=== PATIENT | female | born 1945 | race Caucasian/White ===

== ENCOUNTER 2016-10-05 08:31 | Outpatient (CLI) | payer MEDICARE ==
[~2016-10-05] VITALS: Ht 162.6 cm; Wt 122.7 kg
--- NOTE | ~2016-10-05 | HEMODYNAMI ---
PATIENT:GIULIANO SHAH MEDICAL RECORD: [id number] : 49 LOCATION:[facility] ADMISSION DATE: 10/05/16 Generatedon:10/05/201611:35 Patient name: GIULIANO SHAH Patient #: [id number] SSN: : 1945 Date of study: 10/05/2016 Page: Of Hemodynamic Procedure Report Patient Data Patient Demographics Procedure consent was obtained First Name: GIULIANO Gender: Female Last Name: ALYSSA : 1945 Patient #: [id number] Age: 71 year(s) Race: Unknown Additional ID: [id number] Contact details Address: [address] [place] [address] STREET State: [place]: [facility] [place] code: [address] Past Medical History Allergies Allergen Reaction Date Comments Reported Other allergy 10/05/2016 erthromycin, methorexate, sotalol Admission Admission Data Admission Date: 10/05/2016 Admission Time: 8:31 Admit Source: Other Lab Results Lab Result Date: 10/05/2016 Lab Result Time: 0:00 Biochemistry Name Units Result Min Max BUN mg/dl 24 --(----)-* 7 18 Creatinine mg/dl 1.1 --(--*-)-- 0.6 1.3 CBC Name Units Result Min Max Hemoglobin g/dl 12 *-(----)-- 13.5 17.5 Procedure Procedure Types Cath Procedure Diagnostic Procedure LHC LHC w/Coronaries Procedure Description Procedure Date Procedure Date: 10/05/2016 Procedure Start Time: 11:25 Procedure End Time: 11:33 Procedure Staff Name Function Rafael Hernandez MD Performing Physician Jenn Albert RN Nurse Jaime Mazariegos RT Monitor Anna Eason RT Scrub Juvencio Garcia RT Underground Roof Bolter Procedure Data Cath Procedure Fluoroscopy Diagnostic fluoroscopy Total fluoroscopy Time: 1.8 time: 1.8 min min Diagnostic fluoroscopy Total fluoroscopy dose: 442 dose: 442 mGy mGy Contrast Material Contrast Material Type Amount (ml) Isovue 300 53 Entry Location Entry Primary Successful Side Size Upsize Upsize Entry Closure Succes sful Closure Location (Fr) 1 (Fr) 2 (Fr) Remarks Device Remarks Femoral Right 5 Fr Vascade artery Closure System Diagnostic catheters Device Type Used For End Catheter Placement Cordis 5Fr Pigtail LV Angiography Catheter (MP) Cordis 5Fr JL 4.0 Left Coronary Catheter (MP) Angiography Cordis 5Fr 3DRC Catheter Right Coronary (MP) Angiography Procedure Complications No complications Procedure Medications Medication Administration Route Dosage Oxygen NC 2 l/min Heparin Flush Bag added to field 2 bags (1000units/500ml NS) Lidocaine 2% added to field 20 Benadryl I.V. 50 mg Versed I.V. 1 mg Fentanyl I.V. 50 mcg Versed I.V. 1 mg Fentanyl I.V. 50 mcg Versed I.V. 1 mg Fentanyl I.V. 50 mcg Versed I.V. 1 mg Fentanyl I.V. 50 mcg Hemodynamics Rest HGB: 12 (g/dl) Heart Rate: 81 (bpm) Snapshots Pre Cath Intra NCS Post Cath Vital Signs Time Heart Resp SPO2 NIBP (mmHg) Rhythm Pain Sedation Rate (ipm) (%) Status Level (bpm) 11:08:25 82 17 98 204/103(158) NSR 0 (11) 10(A) , No pain 11:12:47 79 26 99 174/73(137) NSR 0 (11) 10(A) , No pain 11:17:08 75 23 97 154/72(127) NSR 0 (11) 10(A) , No pain 11:21:24 80 16 95 155/76(130) NSR 0 (11) 10(A) , No pain 11:25:40 83 19 98 147/70(121) NSR 0 (11) 10(A) , No pain 11:29:58 83 15 97 162/79(110) NSR 0 (11) 10(A) , No pain 11:33:45 83 17 96 164/76(121) NSR 0 (11) 10(A) , No pain Medications Time Medication Route Dose Verified Delivered Reason Notes Effec tiveness by by 11:09:27 Oxygen NC 2 Rafael Jenn Per l/min Mary Albert RN physician 11:09:38 Heparin Flush added 2 Rafael Rafael used for Bag to bags Mary Hernandez MD procedure (1000units/500ml field NS) 11:09:44 Lidocaine 2% added 20ml Rafael Hall used for to vial Mary Hernandez MD procedure field 11:09:51 Benadryl I.V. 50 mg Rafael Jenn Per Mary Albert RN physician 11:24:18 Versed I.V. 1 mg Rafael Jenn for Mary Albert RN sedation 11:24:23 Fentanyl I.V. 50 Raafel Jenn for mcg Mary Albert RN sedation 11:26:33 Versed I.V. 1 mg Rafael Jenn for Mary Albert RN sedation 11:26:36 Fentanyl I.V. 50 Rafael Jenn for mcg Mary Albert RN sedation 11:28:15 Versed I.V. 1 mg Rafael Jenn for Mary Albert RN sedation 11:28:21 Fentanyl I.V. 50 Rafael Jenn for mcg Mary Albert RN sedation 11:29:14 Versed I.V. 1 mg Rafael Jenn for Mary Albert RN sedation 11:29:26 Fentanyl I.V. 50 Rafael Jenn for mcg Mary Albert RN sedation Procedure Log Time Note 10:40:08 Jaime Mazariegos RT(R) sent for patient. Start room use. 10:54:26 Admit Source: Other 10:55:05 Diagnostic Cath status Elective 10:55:16 Time tracking: Regular hours 10:55:20 Plan of Care:Hemodynamics will remain stable., Cardiac rhythm will remain stable., Comfort level will be maintained., Respiratory function will remain adequate., Patient/ family verbilizes understanding of procedure., Procedure tolerated without complication., Recovers from procedure without complications.. 11:06:16 Vital chart was started 11:09:27 Oxygen 2 l/min NC was given by Jenn Albert RN; Per physician; 11:09:38 Heparin Flush Bag (1000units/500ml NS) 2 bags added to field was given by Rafael Hernandez MD; used for procedure; 11:09:44 Lidocaine 2% 20ml vial added to field was given by Rafael Hernandez MD; used for procedure; 11:09:51 Benadryl 50 mg I.V. was given by Jenn Albert RN; Per physician; 11:10:56 Patient received from Outpatients to CCL 1 Alert and oriented. Tansferred to table in Supine position. 11:10:57 Warm blankets applied, and alda hugger turned on for patient comfort. 11:10:57 Correct patient and procedure confirmed by team. 11:10:58 Signed procedure consent form obtained from patient. 11:10:59 ECG and BP/O2 sat monitors applied to patient. 11:11:00 Baseline sample Acquired. 11:11:04 Rhythm: sinus rhythm 11:11:25 Full Disclosure recording started 11:14:46 H&P Date Dictated: 09/16/2017 Within 30 days and on chart., H&P Addendum completed by physician on day of procedure. (MUST COMPLETE FOR ALL OUTPATIENTS). 11:14:47 Pre-procedure instructions explained to patient. 11:14:47 Pre-op teaching completed and patient verbalized understanding. 11:14:49 Family in waiting room. 11:14:51 Patient NPO since Midnight. 11:15:34 Patient allergic to Other allergyerthromycin, methorexate, sotalol 11:15:37 Is the patient allergic to Iodine/contrast media? No. 11:15:54 Is patient on blood thinner?No 11:15:56 Patient diabetic? No. 11:16:09 ----Pre-sedation anethsthesia assessment.---- 11:16:11 Previous problem with sedation/anesthesia? No ? 11:16:13 Snore? Yes 11:16:14 Sleep apnea? No 11:16:18 Deviated septum? No 11:16:21 Opens mouth fully? Yes 11:16:23 Sticks out tongue? Yes 11:16:25 Airway obstruction? No ? 11:16:32 Dentures? Yes out 11:16:35 Pre procedure: right dorsailis pedis pulse 2+ Normal; easily identifiable; not easily obliterated 11:16:37 Patient pain scale 0/10 ?. 11:16:45 IV patent on arrival in left hand with 0.9% NaCl at 10ml/hr. 11:18:21 Lab Result : BUN 24 mg/dl 11:18:21 Lab Result : Creatinine 1.1 mg/dl 11:18:21 Lab Result : Hemoglobin 12 g/dl 11:18:24 Lab results completed and on chart. 11:18:28 Right groin area was prepped with chlora-prep and draped in sterile fashion 11:18:31 Alarms reviewed by R. N. 11:18:32 Sharps counted by scrub and verified by R.N. 11:21:40 Zero performed for pressure channel P1 11::52 --------ALL STOP TIME OUT------ 11::53 Final Timeout: patient, procedure, and site verified with staff and physician. All members of the team are in agreement. 11::54 Right groin site verified by team. 11::56 Physical assessment completed. ASA score P 2 - A patient with mild systemic disease as per Rafael Hernandez MD. 11:23:59 Sedation plan: IV Moderate Sedation Versed, Fentanyl 11:24:18 Versed 1 mg I.V. was given by Jenn Albert RN; for sedation; ::23 Fentanyl 50 mcg I.V. was given by Jenn Albert RN; for sedation; 11:25:24 Use device set Femoral Dx 11:25:25 Acist Syringe opened to sterile field. 11:25:25 Bag Decanter opened to sterile field. 11:25:26 Cardinal Cath Pack opened to sterile field. 11:25:26 Terumo 5Fr [place] Sheath opened to sterile field. 11:25:27 St Rishi 260cm J .035 wire opened to sterile field. 11:25:28 Acist Hand Control opened to sterile field. 11:25:28 Acist Manifold opened to sterile field. 11:25:29 Cordis Infinity 5Fr Multipack catheter opened to sterile field. 11:25:30 Tegaderm 4 x 4 opened to sterile field. 11:25:33 Procedure started. 11:25:41 Local anesthetic to right femoral artery with Lidocaine 2% by Rafael Hernandez MD.INITIAL ACCESS ONLY 11:25:48 A 5 Fr sheath was inserted into the Right Femoral artery 11:26:13 A Cordis 5Fr Pigtail Catheter (MP) was advanced over the wire and used for LV Angiography. 11:26:16 LV angiography performed. 11:26:18 LV gram done using TRINIDAD 11::33 Versed 1 mg I.V. was given by Jenn Albert RN; for sedation; 11::36 Fentanyl 50 mcg I.V. was given by Jenn Albert RN; for sedation; 11::43 EF : 60 % 11::44 Catheter removed. 11::53 A Cordis 5Fr JL 4.0 Catheter (MP) was advanced over the wire and used for Left Coronary Angiography. 11::57 LCA angiography performed. 11::15 Versed 1 mg I.V. was given by Jenn Albert RN; for sedation; 11::21 Fentanyl 50 mcg I.V. was given by Jenn Albert RN; for sedation; 11::00 Catheter removed. 11::05 A Cordis 5Fr 3DRC Catheter (MP) was advanced over the wire and used for Right Coronary Angiography. 11:29:09 RCA angiography performed. 11::14 Versed 1 mg I.V. was given by Jenn Albert RN; for sedation; 11:: Fentanyl 50 mcg I.V. was given by Jenn Albert RN; for sedation; 11:30:12 Catheter removed. 11:30:22 Vascade 5Fr Closure Device opened to sterile field. 11:30:30 Contrast amount:Isovue 300 53ml. 11:30:38 Sheath removed intact; hemostasis achieved with Vascade Closure System to the Right Femoral artery. 11:30:39 Procedure ended.(Physican Out) 11:30:58 Fluoroscopy time 01.80 minutes. 11::03 Fluoroscopy dose: 442 mGy 11::03 Flurop Dose total: 442 11:31:04 Sharps counted by scrub and verified by R.N. 11:31:05 Insertion/operative site no bleeding no hematoma. 11:31:08 Post-op/insertion site Right Femoral artery dressed using a 4 x 4 and Tegaderm. 11:31:11 Post right femoral artery:stable 11:31:12 Post Procedure Pulses reassessed and unchanged 11:31:14 Post procedure: right dorsailis pedis pulse 2+ Normal; easily identifiable; not easily obliterated. 11:31:19 Post procedure rhythm: sinus rhythm 11:31:20 Post procedure instruction explained to patient.Patient verbalizes understanding. 11:31:31 Procedure and supply charges have been captured, reviewed, submitted and are correct. 11:31:39 Procedure Complication : No complications 11:33:17 Vital chart was stopped 11:33:18 See physician's report for complete and final results. 11:33:25 Report given to Post Procedure Room. 11:33:28 Patient transfered to Post Procedure Room with Stretcher. 11:33:30 Procedure ended. 11:33:30 Full Disclosure recording stopped 11:33:35 End room use (Document Last) Device Usage Item Name Manufacture Quantity Catalog Number Hospital Part Current Minimal Lot# / Charge Number Stock Stock Serial# Code Acist Acist 1 [id number] 312286 [id number] 20 Syringe Medical Systems Inc Bag Microtek 1 2002S 184254 98862 379980 5 Decanter Medical Inc. Cardinal Cardinal 1 [id number] 046631 69873 345004 5 Cath Pack [place] Terumo Terumo 1 [id number] 493157 694580 626211 [address] [place] [address] Rishi St Rishi 1 460222 663014 286350 414547 30 260cm J .035 wire Acist Acist 1 07555 735783 967037 177457 5 Hand Medical Control Systems Inc Acist Acist 1 88536 027707 501412 357330 5 Manifold Medical Systems Inc Cordis Cardinal 1 [id number] 537365 16790 388114 30 Infinity Health 5Fr Multipack catheter Tegaderm 3M 1 [id number] 416125 886561 951575 5 4 x 4 Cordis Cardinal 1 [id number] 5 5Fr Health Pigtail Catheter (MP) Cordis Cardinal 1 [id number] 5 5Fr Health 4.0 Catheter (MP) Cordis Cardinal 1 247593 5 5Fr [facility] Health Catheter (MP) Vascade Cardiva 1 [id number] 267656 36101 952435 10 5Fr Medical, Closure Inc. Device Signature Audit [place] Stage Time Signature Unsigned Intra-Procedure 10/05/2016 Jaime Mazariegos 11:35:21 AM RT(R) Signatures Monitor : Jaime Mazariegos RT Signature : Date : Time : [facility] [address] [place] [address]
[~2016-10-05 08:31] MED LIST: ASPIRIN 81 MG E81 MG PO; KLOR-CON M2020 MEQ PO; LANOXIN125 MCG PO; LASIX40 MG; LASIX40 MG PO; NITROGLYCERIN2.5 M1 PO; PLAVIX75 MG PO; PRILOSEC20 MG PO; TOPROL XL100 MG PO
[2016-10-05 09:33] VITALS: Ht 162.6 cm; Wt 122.7 kg
[2016-10-05] MEDS ORDERED: ZOLOFT25 MG PO (09:40)
[2016-10-05 09:41] LABS: BASOPHILS 0.5 % (0.0-2.0); EOSINOPHILS 0 % (0-7); HEMATOCRIT 37.6 % (36.0-48.0); IMMATURE GRANULOCYTES 0.3 % (0-5); LYMPHOCYTES 27.5 % (15-50); MCH 28.1 pg (26.0-34.0); MCHC 31.9 g/dL (31.0-37.0); MCV 88.1 fL (80.0-100.0); MEAN PLATELET VOLUME 10.5 fL (7.4-10.4); MONOCYTES 6.9 % (2-11); NEUTROPHILS 64.8 % (40-80); PLATELET COUNT 185 10x3/uL (130-400); RBC 4.27 10x6/uL (4.00-5.40); WBC 7.7 10x3/uL (4.8-10.8)
[2016-10-05] MEDS ORDERED: VITAMIN E1000 UNI1 PO (09:42)
[2016-10-05] MEDS ORDERED: MAGNESIUM OXID500 MG PO (09:42)
[2016-10-05 10:02] LABS: ANION GAP 11.1 mmol/L (8-16); CALCIUM 9.2 mg/dL (8.5-10.1); CARBON DIOXIDE 29.5 mmol/L (21.0-32.0); CREATININE - SERUM 1.1 mg/dL (0.6-1.3); POTASSIUM - SERUM 4.6 mmol/L (3.5-5.1)
--- NOTE | 2016-10-05 12:11 | NUR ---
1200 LYING FLAT, ROOM AIR W NO DISTRESS. NSR RATE 79 W NO C/O CHST PAIN. PULSES PALP X 4. VITALS ALL WNL. R GROIN 5F VASCADE C/D/I WITH NO HEMATOMA OR BLEEDING. AT BEDSIDE.
--- NOTE | 2016-10-05 12:29 | NUR ---
LYING FLAT WITH NO C/O OF CHEST PAIN VSS 5 FR VASCADE R/GROIN CDI NO BLEEDING NO HEMATOMA NOTED. INSTRUCTED PATIENT TO KEEP HEAD FLAT ON PILLOW WITH RLE STRAIGHT
--- NOTE | 2016-10-05 13:19 | NUR ---
1300 SITTING UP EATING TURKEY SANDWICH WITH ASSIST FROM . WILL MONITOR R GROIN CLOSELY FOR BLEEDING. ALL VITALS WNL.
--- NOTE | 2016-10-05 13:20 | NUR ---
1320 PIV REMOED FROM LEFT HAND WITH BANDAID APPLIED. R GROIN REMAINS C/D/I WITH NO HEMATOMA OR BLEEDING. UP TO BEDSIDE TO DRESS, AMBULATED TO BATHROOM TO VOID.
--- NOTE | 2016-10-05 13:40 | NUR ---
D/C INSTRUCTIONS DISCUSSED WITH PATIENT AND AT BEDSIDE. WHEELED DOWN VIA WHEELCHAIR BY CATH TEAM.
--- NOTE | 2016-10-09 16:40 | OP ---
PATIENT NAME: GIULIANO SHAH MEDICAL RECORD: [id number] :49 LOCATION:D.CAT ADMISSION DATE: SURGEON: RICH WINTER MD DATE OF OPERATION: 10/05/2016 PROCEDURES: 1. Left heart catheterization. 2. Selective coronary angiography. 3. Left ventriculogram. INDICATION: Angina and coronary artery disease, previous PTCA stent. PROCEDURE IN DETAIL: After informed consent was obtained and after a detailed explanation of the risks, benefits, as well as alternative therapies, the patient elected to proceed with angiogram and heart catheterization. The right femoral area was prepped and draped in normal sterile fashion. The right femoral artery was cannulated via modified Seldinger technique with placement of 5-Portuguese sheath. All catheters exchanged through this sheath. FINDINGS: The left ventriculogram was performed in standard 30-degree TRINIDAD view, reveals good cardiac wall motion, ejection fraction 55% to 60%. SELECTIVE CORONARY ANGIOGRAPHY: 1. Left main showed no significant angiographic disease. 2. Left anterior descending has previously placed stent; it is widely patent with no significant restenosis. No disease elsewise throughout the LAD or its branches. 3. The left circumflex shows moderate irregularities, but no flow-limiting stenosis. 4. Right coronary has moderate irregularities, but no flow-limiting stenosis. OVERALL IMPRESSION: Wide patency of the previously placed stent in the left anterior descending. No disease elsewise. Normal ejection fraction. Continue medical management of the coronary artery disease and cardiac risk factors. TRANSINT:[id number] Voice Confirmation ID: [id number] DOCUMENT ID: [id number] RICH WINTER MD at [facility] CC: [id number] DICTATION DATE: 10/05/16 1135 TELEGRAPHIC TYPEWRITER OPERATOR CHIEF: 10/05/16 1144 DEP CLI 10/05/16 [place] [address]
== END 2016-10-05 13:41 | disposition home or self-care (01) ==
LOC: D.CATH 08:31
PROVIDERS: Internal Medicine Interventional Cardiology
DX: I25.119 Atherosclerotic heart disease of native coronary artery with unspecified angina pectoris (principal); Z95.5 Presence of coronary angioplasty implant and graft

== ENCOUNTER → 2017-01-14 12:30 | Outpatient (CLI) | payer MEDICARE ==
[2016-10-05 09:33] VITALS: BMI 46.4
[~2017-01-14 12:30] MED LIST changes: +MAGNESIUM OXID500 MG PO; +VITAMIN E1000 UNI1 PO; +ZOLOFT25 MG PO
== END | disposition home or self-care (01) ==
LOC: D.RT 12:30
DX: J44.9 Chronic obstructive pulmonary disease, unspecified (principal)

== ENCOUNTER → 2017-05-14 11:37 | Outpatient (CLI) | payer MEDICARE ==
[2016-10-05 09:33] VITALS: BMI 46.4
== END | disposition home or self-care (01) ==
LOC: D.RAD 05-10 16:30 → D.CT 05-10 16:30 → D.RAD 05-10 17:00 → D.CT 11:30 → D.RAD 13:00 → D.CT 05-18 11:30
DX: R07.1 Chest pain on breathing (principal); J44.9 Chronic obstructive pulmonary disease, unspecified

== ENCOUNTER 2017-05-25 07:25 | Outpatient (CLI) | payer MEDICARE ==
[~2017-05-25] VITALS: Ht 162.6 cm; Wt 120.0 kg
--- NOTE | ~2017-05-25 | PRO ---
PATIENT:GIULIANO JIMENEZ MEDICAL RECORD: [id number] : 49 LOCATION:D.OPS ADMISSION DATE: 05/25/17 PROCEDURE PERFORMED BY: FARZANA LINTON MD DATE OF PROCEDURE: 05/25/2017 PROCEDURE: Fiberoptic bronchoscopy. INDICATION: Ms. Jimenez is a 72-year-old female who has recent CT scan of the chest, which showed bilateral hazy infiltrate. There was also tree-in-bud type appearance. Fiberoptic bronchoscopy was carried out to inspect the airway as well as to get specimen for culture and sensitivity. MONITORING: EKG, pulse, blood pressure, SpO2 were monitored throughout the procedure. MEDICATIONS: Atropine 0.6 mg IM, morphine 4 mg IM, fentanyl 50 mcg IV, Versed 3 mg IV. PROCEDURE IN DETAIL: After passing the procedure, the fiberoptic bronchoscope was easily passed through the mouth. The epiglottis was normal. The vocal cords were normal, moving equally on phonation. The main trachea was normal. The abhijit was sharp. The right main bronchus was normal. The subsegment to the right upper lobe, right middle lobe, right lower lobe within normal range. No endobronchial lesion was seen. There were no bronchitic changes. The left main bronchus, the subsegment to the left upper lobe, left lower lobe within normal range. No endobronchial lesion was seen. There was no yellowish secretion on both sides. Washing was obtained bilaterally and sent for routine culture and sensitivity, AFB and fungus, and cytology. Overall, the patient tolerated the procedure very well. TRANSINT:[id number] Voice Confirmation ID: [id number] DOCUMENT ID: [id number] FARZANA LINTON MD CC: [id number] DICTATION DATE: 05/25/17 1033 BENCH ASSEMBLER BATTERY: 05/25/17 1052 [facility] [address] [place] [address]
[2017-05-25 08:12] LABS: BASOPHILS 0.3 % (0-2); EOSINOPHILS 0.2 % (0-7); HEMATOCRIT 34.9 % (36.0-48.0); HEMOGLOBIN 11.3 g/dL (12-16); IMMATURE GRANULOCYTES 0.2 % (0-5); MCH 28.3 pg (26.0-34.0); MCHC 32.4 g/dL (31.0-37.0); MCV 87.3 fL (80.0-100.0); MEAN PLATELET VOLUME 9.5 fL (7.4-10.4); MONOCYTES 8.7 % (2-11); NEUTROPHILS 70.6 % (40-80); PLATELET COUNT 205 10x3/uL (130-400); WBC 9.1 10x3/uL (4.8-10.8)
[2017-05-25] MEDS ORDERED: PEPCID20 MG PO (08:25)
[2017-05-25 08:35] VITALS: BP 175/71; Ht 162.6 cm; Wt 120.0 kg
[2017-05-25 08:35] LABS: APTT 37.2 SECONDS (22.8-39.4); INR 1.03 (0.85-1.17); PROTIME 13.3 SECONDS (11.6-15.0)
--- NOTE | 2017-05-25 12:52 | NUR ---
IV DC WITH CATHER TIP INTACT
--- NOTE | 2017-05-25 16:08 | NUR ---
[id number] VS TAKEN AND PLACED ON POST OP SHEET AND PLACED IN CHART
[2017-05-26 14:19] LABS: FUNGUS STAIN Final report (())
[2017-05-26 19:11] LABS: ACID FAST SMEAR Negative (()); AFB SPECIMEN PROCESSING Concentration (())
== END 2017-05-25 13:00 | disposition home or self-care (01) ==
LOC: D.OPS 07:25
PROVIDERS: Internal Medicine Pulmonary Disease
DX: J44.9 Chronic obstructive pulmonary disease, unspecified (principal); R06.02 Shortness of breath; Z87.891 Personal history of nicotine dependence; J30.2 Other seasonal allergic rhinitis; I25.10 Atherosclerotic heart disease of native coronary artery without angina pectoris; E66.01 Morbid (severe) obesity due to excess calories; K21.9 Gastro-esophageal reflux disease without esophagitis; G47.33 Obstructive sleep apnea (adult) (pediatric); R91.8 Other nonspecific abnormal finding of lung field; Z01.812 Encounter for preprocedural laboratory examination

== ENCOUNTER → 2017-06-07 16:53 | Outpatient (CLI) | payer MEDICARE | END | disposition home or self-care (01) | LOC: D.MAMMO 16:53 | DX: N64.4 Mastodynia (principal) ==

== ENCOUNTER → 2018-01-10 19:58 | Outpatient (CLI) | payer MEDICARE ==
[2017-05-25 08:35] VITALS: BMI 45.4
[~2018-01-10 19:58] MED LIST changes: +PEPCID20 MG PO
== END | disposition home or self-care (01) ==
LOC: D.MAMMO 01-04 13:00 → D.US 01-04 14:00 → D.MAMMO 09:30
DX: R92.8 Other abnormal and inconclusive findings on diagnostic imaging of breast (principal)

== ENCOUNTER → 2018-06-21 19:05 | Outpatient (CLI) | payer MEDICARE ==
[2017-05-25 08:35] VITALS: BMI 45.4
== END | disposition home or self-care (01) ==
LOC: D.MAMMO 08:30
DX: R92.8 Other abnormal and inconclusive findings on diagnostic imaging of breast (principal)

== ENCOUNTER → 2018-09-26 09:31 | Outpatient (CLI) | payer MEDICARE ==
[2017-05-25 08:35] VITALS: BMI 45.4
== END | disposition home or self-care (01) ==
LOC: D.CT 09:30
DX: R91.1 Solitary pulmonary nodule (principal)

== ENCOUNTER → 2018-11-18 10:08 | Outpatient (CLI) | payer MEDICARE ==
[2017-05-25 08:35] VITALS: BMI 45.4
== END | disposition home or self-care (01) ==
LOC: D.MRI 10:08
PROVIDERS: ATTEND Orthopaedic Surgery
DX: M54.12 Radiculopathy, cervical region (principal)

== ENCOUNTER → 2019-04-10 12:17 | Outpatient (CLI) | payer MEDICARE ==
[2017-05-25 08:35] VITALS: BMI 45.4
--- NOTE | 2019-04-14 11:14 | ST ---
PATIENT:GIULIANO SHAH MEDICAL RECORD: [id number] SEX: F LOCATION:[facility] ORDER #: ADMISSION DATE: 04/10/19 AGE OF PATIENT: 74 REFERRING PHYSICIAN: INTERPRETING PHYSICIAN: RICH WINTER MD DATE OF SERVICE: 04/10/2019 PROCEDURE: Nuclear stress test. INDICATION: Angina, coronary artery disease, shortness of breath, hypertension, and aortic stenosis. She was exercised on standard Lexiscan protocol with 27 mCi of sestamibi injected at peak stress and 9 mCi was used previously for rest images. FINDINGS: Gated SPECT reveals preserved ejection fraction at 63% with good wall motion and thickening and brightening throughout all segments. SPECT imaging Cardiolite was used as myocardial fusion agent. There is homogeneous uptake throughout all segments at rest and stress with no evidence of inducible ischemia or previous infarction. OVERALL IMPRESSION: 1. This is a normal nuclear stress test with no evidence of inducible ischemia or previous infarction. 2. Gated SPECT reveals a preserved ejection fraction at 63%. In this patient with ongoing symptomatology, the current scan does not suggest the presence of hemodynamically significant coronary artery disease. Evaluate noncardiac etiology of chest pain. TRANSINT:[id number] Voice Confirmation ID: [id number] DOCUMENT ID: [id number] RICH WINTER MD at 1114 CC: NANCY PATE MD [id number] DICTATION DATE: 04/11/19 1016 BUSINESS AND SERVICES INSTRUCTOR: 04/11/19 2230 [facility] CLI 04/10/19 [place] [id number] [place] [address]
== END | disposition home or self-care (01) ==
LOC: D.HCCARDIO 12:17
PROVIDERS: ATTEND Internal Medicine Interventional Cardiology
DX: I25.10 Atherosclerotic heart disease of native coronary artery without angina pectoris (principal)

== ENCOUNTER → 2019-05-30 09:34 | Outpatient (CLI) | payer MEDICARE ==
[2017-05-25 08:35] VITALS: BMI 45.4
== END | disposition home or self-care (01) ==
LOC: D.CT 09:30
PROVIDERS: ATTEND Internal Medicine Pulmonary Disease
DX: R59.0 Localized enlarged lymph nodes (principal)

== ENCOUNTER → 2019-10-17 09:47 | Outpatient (CLI) | payer MEDICARE ==
[2017-05-25 08:35] VITALS: BMI 45.4
== END | disposition home or self-care (01) ==
LOC: D.CT 10-06 13:00
PROVIDERS: ATTEND Internal Medicine Pulmonary Disease
DX: R91.1 Solitary pulmonary nodule (principal)

== ENCOUNTER → 2020-03-06 12:56 | Outpatient (CLI) | payer MEDICARE ==
[2017-05-25 08:35] VITALS: BMI 45.4
== END | disposition home or self-care (01) ==
LOC: D.CT 01-29 13:00
PROVIDERS: ATTEND Internal Medicine Pulmonary Disease
DX: R91.1 Solitary pulmonary nodule (principal)

== ENCOUNTER 2021-01-17 16:26 | Inpatient (IN) | payer MEDICARE ==
[~2021-01-17] VITALS: Ht 162.6 cm; Wt 108.9 kg
[~2021-01-17 16:26] MED LIST changes: +ASPIRIN81 MG PO; +FUROSEMIDE40 MG PO; +HYDROCODON-ACE1 EA10 PO; +IBUPROFEN800 MG PO; +OMEPRAZOLE40 MG PO; +TRELEGY ELLIPT1 EACH INH
[2021-01-17 16:58] VITALS: BP 130/67
[2021-01-17 17:30] LABS: HEMATOCRIT 35.1 % (36.0-48.0); HEMOGLOBIN 11.5 g/dL (12-16); LYMPHOCYTE ABS# 1.37 10x3/uL (1.18-3.74); MCH 28.3 pg (26.0-34.0); MCHC 32.8 g/dL (31.0-37.0); MCV 86.2 fL (80.0-100.0); MEAN PLATELET VOLUME 10.4 fL (7.4-10.4); NEUTROPHIL ABS# 16.86 10x3/uL (1.56-6.13); PLATELET COUNT 248 10x3/uL (130-400); RBC 4.07 10x6/uL (4.00-5.40); WBC 20.3 10x3/uL (4.8-10.8)
[2021-01-17 17:43] LABS: ANION GAP 18.3 mmol/L (8-16); CALCIUM 8.5 mg/dL (8.5-10.1); CARBON DIOXIDE 22.7 mmol/L (21.0-32.0); CREATININE - SERUM 1.1 mg/dL (0.6-1.3)
[2021-01-17 17:44] LABS: MAGNESIUM - SERUM 1.7 mg/dL (1.8-2.4)
[2021-01-17 18:04] LABS: LYMPHOCYTES 10 % (15-50); MONOCYTES 3 % (2-11); NEUTROPHILS 87 % (40-80); PLATELET ESTIMATE NORMAL
[2021-01-17] MEDS ORDERED: ZOLOFT100 MG PO (18:23)
[2021-01-17] MEDS ORDERED: MACRODANTIN100 MG PO (18:25)
[2021-01-17] MEDS ORDERED: GABAPENTIN100 MG PO (18:27)
[2021-01-17] MEDS ORDERED: POTASSIUM CHLO10 ME1 PO (18:32)
[2021-01-17] MEDS ORDERED: TOPROL XL100 MG (18:36)
[2021-01-17] MEDS ORDERED: LOW DOSE ASPIRI81 M1 PO (18:38)
[2021-01-17] MEDS ORDERED: GLUCOPHAGE500 MG PO (18:39)
[2021-01-17] MEDS ORDERED: SOMA350 MG PO (18:41)
[2021-01-17] MEDS ORDERED: HYDROCODONE-AC1 EAC2 PO (18:42)
[2021-01-17] MEDS ORDERED: OMEPRAZOLE20 M1 PO (18:43)
[2021-01-17] MEDS ORDERED: PEPCID AC20 MG PO (18:45)
[2021-01-17] MEDS ORDERED: PROAIR HFA8.5 G1 (19:13)
[2021-01-17] MEDS ORDERED: PROAIR HFA8.5 G1 IH (19:14)
--- NOTE | 2021-01-17 19:15 | NUR ---
RECEIVED REPORT, WILL ASSUME CARE OF PT, DENIES ANY NEEDS AT THIS TIME, PLACED ON TELEMTRY, COLLECTED UA-TOOK TO LAB, BED IS LOW, SRX2, CALL LIGHT IN REACH, WILL CONTINUE PLAN OF CARE
[2021-01-17] MEDS ORDERED: IPRAT-ALBUT 0.5-3 ML INH (19:16)
[2021-01-17] MEDS ORDERED: PEPTO-BISMOL262 M1 PO (19:18)
[2021-01-17 19:31] LABS: NITRITE NEGATIVE (NEGATIVE)
[2021-01-17 19:32] LABS: BACTERIA FEW HPF (NONE SEEN); BILIRUBIN NEGATIVE (NEGATIVE); KETONE NEGATIVE (NEGATIVE); SQUAMOUS EPITHELIAL 0-5 HPF (0-4); UROBILINOGEN NORMAL mg/dL (< 2); WHITE CELLS - URINE 0-5 HPF (0-4)
[2021-01-17 20:45] VITALS: BP 143/62
[2021-01-18 01:05] VITALS: BP 148/61
[2021-01-18 05:25] VITALS: BP 153/65
[2021-01-18 06:52] LABS: BASOPHILS 0.1 % (0-2); EOSINOPHILS 0.4 % (0-7); HEMATOCRIT 33.3 % (36.0-48.0); HEMOGLOBIN 10.9 g/dL (12-16); IMMATURE GRANULOCYTES 0.4 % (0-5); LYMPHOCYTE ABS# 1.01 10x3/uL (1.18-3.74); LYMPHOCYTES 6.6 % (15-50); MCH 28.2 pg (26.0-34.0); MCHC 32.7 g/dL (31.0-37.0); MEAN PLATELET VOLUME 10.2 fL (7.4-10.4); MONOCYTES 7.3 % (2-11); NEUTROPHIL ABS# 13.14 10x3/uL (1.56-6.13); NEUTROPHILS 85.2 % (40-80); PLATELET COUNT 208 10x3/uL (130-400); RBC 3.87 10x6/uL (4.00-5.40); RDW 15.1 % (11.5-14.5); WBC 15.4 10x3/uL (4.8-10.8)
[2021-01-18 07:05] LABS: ANION GAP 14.6 mmol/L (8-16); CALCIUM 8.7 mg/dL (8.5-10.1); CARBON DIOXIDE 23.3 mmol/L (21.0-32.0); CREATININE - SERUM 1.1 mg/dL (0.6-1.3); POTASSIUM - SERUM 3.9 mmol/L (3.5-5.1)
--- NOTE | 2021-01-18 07:30 | NUR ---
INITIAL ROUNDS- PT UP TO SIDE OF BED, A/O X4, RESP A LITTLE LABORED ON 3L. ENCOURAGED PT TO TAKE IN DEEP BREATHS. RT FA IV INFUSING NS AT 30CC/HR. ST-128 ON TELE. ALL NEEDS MET, CALL LIGHT IN REACH, WILL CONTINUE PLAN OF CARE.
--- NOTE | 2021-01-18 08:09 | NUR ---
AM MEDS GIVEN AT THIS TIME. ALSO GAVE NORCO FOR PAIN LEVEL OF 7/10.
[2021-01-18 08:14] VITALS: BP 125/65; BP 250/80
--- NOTE | 2021-01-18 11:19 | NUR ---
BLOOD SUGAR OF 210, 8UNITS GIVEN PER S/S. PT UP TO SIDE OF BED, JUST GOT DONE WITH SHOWER. DENIES ANY NEEDS, CALL LIGHT IN REACH.
[2021-01-18 12:23] VITALS: Ht 162.6 cm; Wt 108.9 kg
[2021-01-18 12:24] VITALS: BP 117/57
--- NOTE | 2021-01-18 15:24 | EC ---
PATIENT:GIULIANO SHAH DATE OF SERVICE: 01/17/21 SEX: F MEDICAL RECORD: [id number] DATE OF : 49 LOCATION:D. D.211 AGE OF PATIENT: 75 ADMISSION DATE: 01/17/21 REFERRING PHYSICIAN: INTERPRETING PHYSICIAN: MIKAYLA WOLF MD ECHOCARDIOGRAM REPORT ECHO CHARGES 4 ECHO COMPLETE Date: 01/18/21 CLINICAL DIAGNOSIS: SOB, HX OF AORTIC STENOSIS,MITRAL REGURG ECHOCARDIOGRAPHIC MEASUREMENTS (adult normal given) AC root (d.<3.7cm) 3.4 cm LV Septum d (<1.2 cm> 1.4 cm Valve Excursion 1.8 cm LV Septum (systole) 1.8 cm Left Atria (s.<4.0cm> 4.5 cm LVPW d(<1.2cm) 1.7 cm RV (d.<2.3cm) 3.5 cm LVPW (sytole) 2.0 cm LV diastole(<5.6CM) 4.2 cm MV E-F(>70mm/sec) cm LV systole 2.3 cm LVOT Diameter 1.5 cm MV exc.(>10mm) 1.4 cm Est.ejection fraction (50-75%) % DOPPLER: LVIT cm/sec A 155.0cm/sec E 109.0 cm/sec LA cm/sec RVSP 37 mmHg LVOT 114 cm/sec AOP1/2T m/s Asc. Ao 270 cm/sec RVOT 94 cm/sec RA cm/sec PA 127 cm/sec AV Gradient Peak 29.25mmHg AV Mean 19.23mmHg AV Area 0.7 cm MV Gradient Peak 15.10mmHg MV Mean 6.69 mmHg MV Area cm COMMENTS: Check Weigher: 2 ROSALIA LEONARDO Parts Salvager: 5 Dr. Wolf TAPE# PACS Pericardial Effusion N DATE OF SERVICE: CLINICAL INDICATION: Shortness of breath. INTERPRETATION: Normal left ventricular chamber size and contractile function with mild concentric left ventricular hypertrophy with an ejection fraction of 55% to 60%. Left atrial chamber is mildly dilated. Right atrium and right ventricular chamber size and function appears normal. Aortic valve is not well visualized, there is mild sclerosis/calcification with decreased cusp excursion. Mild to moderate aortic stenosis. Aortic mean velocity 2.7 meters per second. ECHOCARDIOGRAM REPORT [id number] KOTUR,GIULIANO Mitral valve appears mildly thickened. Mitral annular calcification. Afhzh-kd-pzxa mitral regurgitation. Tricuspid valve appears normal. Mild tricuspid regurgitation. Pulmonic valve not well visualized. No pulmonary regurgitation noted. No pericardial effusion visualized. FINAL IMPRESSION: Normal left ventricular chamber size and contractile function with mild concentric left ventricular hypertrophy with an ejection fraction of 55% to 60%. TRANSINT:[id number] Voice Confirmation ID: [id number] DOCUMENT ID: [id number] MIKAYLA WOLF MD at 1524 CC: [id number] DICTATION DATE: 01/18/21 1219 MEDICATION NURSE: 01/18/21 1419 ADM IN [facility] [address] [place] [address]
[2021-01-18 17:26] VITALS: BP 131/68
[2021-01-18 21:03] VITALS: BP 139/61
[2021-01-19 02:15] VITALS: BP 130/67
[2021-01-19 06:08] VITALS: BP 127/58
[2021-01-19 06:27] LABS: BASOPHILS 0.1 % (0-2); EOSINOPHILS 1.3 % (0-7); HEMATOCRIT 31.7 % (36.0-48.0); HEMOGLOBIN 10.1 g/dL (12-16); IMMATURE GRANULOCYTES 0.4 % (0-5); LYMPHOCYTES 3.9 % (15-50); MCHC 31.9 g/dL (31.0-37.0); MCV 87.8 fL (80.0-100.0); MEAN PLATELET VOLUME 10.6 fL (7.4-10.4); MONOCYTES 8.2 % (2-11); NEUTROPHIL ABS# 13.28 10x3/uL (1.56-6.13); NEUTROPHILS 86.1 % (40-80); PLATELET COUNT 220 10x3/uL (130-400); RBC 3.61 10x6/uL (4.00-5.40); RDW 15.3 % (11.5-14.5); WBC 15.4 10x3/uL (4.8-10.8)
[2021-01-19 06:58] LABS: ANION GAP 13.9 mmol/L (8-16); CALCIUM 9.1 mg/dL (8.5-10.1); CARBON DIOXIDE 25.2 mmol/L (21.0-32.0); CREATININE - SERUM 1.2 mg/dL (0.6-1.3); DIGOXIN 0.85 ng/mL (0.90-2.00); POTASSIUM - SERUM 4.1 mmol/L (3.5-5.1)
[2021-01-19 08:08] LABS: IMMUNOGLOBULIN A 226 mg/dL (64-422); IMMUNOGLOBULIN G 623 mg/dL (586-1602)
[2021-01-19 09:09] VITALS: BP 126/62
[2021-01-19 12:17] VITALS: BP 136/61
[2021-01-19 16:33] VITALS: BP 128/55
[2021-01-19 20:56] VITALS: BP 131/58
[2021-01-20 04:13] VITALS: BP 120/55
[2021-01-20 07:06] LABS: BASOPHILS 0.1 % (0-2); EOSINOPHILS 2.2 % (0-7); HEMATOCRIT 30.2 % (36.0-48.0); HEMOGLOBIN 9.8 g/dL (12-16); IMMATURE GRANULOCYTES 0.5 % (0-5); LYMPHOCYTE ABS# 0.62 10x3/uL (1.18-3.74); LYMPHOCYTES 5.4 % (15-50); MCHC 32.5 g/dL (31.0-37.0); MCV 86.3 fL (80.0-100.0); MEAN PLATELET VOLUME 10.4 fL (7.4-10.4); MONOCYTES 6.9 % (2-11); NEUTROPHIL ABS# 9.82 10x3/uL (1.56-6.13); NEUTROPHILS 84.9 % (40-80); PLATELET COUNT 234 10x3/uL (130-400); RDW 15.3 % (11.5-14.5); WBC 11.6 10x3/uL (4.8-10.8)
[2021-01-20 07:39] LABS: ANION GAP 15.1 mmol/L (8-16); CALCIUM 8.8 mg/dL (8.5-10.1); CARBON DIOXIDE 24.5 mmol/L (21.0-32.0); CREATININE - SERUM 1.1 mg/dL (0.6-1.3); POTASSIUM - SERUM 3.6 mmol/L (3.5-5.1)
[2021-01-20 09:19] VITALS: BP 140/69
[2021-01-20 13:21] VITALS: BP 134/62
--- NOTE | 2021-01-20 13:50 | NUR ---
PATIENT REFUSED ALL MOBILITY.
--- NOTE | 2021-01-20 14:53 | NUR ---
Nutrition Follow-up: Pt reports decreased appetite for the last month but states she was hungry this AM and ate 100% of breakfast. Denies N/V, chewing/swallowing difficulties. Last BM 3 days ago. Glu consistently elevated. Pt reports that she is not diabetic. Diet: Diabetic PO intake: 61% avg x 7 meals No new wt; last wt: 240# (01/18) Labs noted: Glu 175 Meds noted: Lantus, Humulin, Florajen, Protonix, Lasix, KDur -Encourage PO Intake and honor food preferences within diet restrictions. -MD may consider drawing A1c. -Monitor wt. -RD will follow up within 4 days.
[2021-01-20 20:00] VITALS: BP 139/67
--- NOTE | 2021-01-20 20:00 | NUR ---
REPORT RECEIVED. PT A&O, UP ON BEDSIDE. NO S/S OF DISTRESS OBSERVED. RR EVEN AND UNLABORED ON 3L. IV RESITED FROM L FA TO R FA WITH NS @ 30CC/HR INFUSING. BED LOCKED AND LOWERED, CL IN REACH. ASSESSMENT COMPLETE. WILL CONT POC.
[2021-01-21] VITALS: BP 135/54
[2021-01-21 04:00] VITALS: BP 156/75
[2021-01-21 05:10] LABS: IGG SUBCLASS 1 395 mg/dL (248-810); IGG SUBCLASS 2 66 mg/dL (130-555); IGG SUBCLASS 3 13 mg/dL (15-102); IGG SUBCLASS 4 1 mg/dL (2-96); IGGS - IGG SERUM 626 mg/dL (586-1602)
[2021-01-21 05:34] LABS: BASOPHILS 0.2 % (0-2); EOSINOPHILS 2.6 % (0-7); HEMATOCRIT 29.4 % (36.0-48.0); HEMOGLOBIN 9.5 g/dL (12-16); IMMATURE GRANULOCYTES 0.9 % (0-5); LYMPHOCYTE ABS# 0.61 10x3/uL (1.18-3.74); LYMPHOCYTES 5.8 % (15-50); MCH 27.9 pg (26.0-34.0); MCHC 32.3 g/dL (31.0-37.0); MCV 86.5 fL (80.0-100.0); MEAN PLATELET VOLUME 10.1 fL (7.4-10.4); MONOCYTES 7.6 % (2-11); NEUTROPHIL ABS# 8.78 10x3/uL (1.56-6.13); NEUTROPHILS 82.9 % (40-80); PLATELET COUNT 226 10x3/uL (130-400); RDW 15.3 % (11.5-14.5); WBC 10.6 10x3/uL (4.8-10.8)
[2021-01-21 06:06] LABS: ANION GAP 13.9 mmol/L (8-16); CALCIUM 8.6 mg/dL (8.5-10.1); CARBON DIOXIDE 25.2 mmol/L (21.0-32.0); POTASSIUM - SERUM 4.1 mmol/L (3.5-5.1)
--- NOTE | 2021-01-21 07:30 | NUR ---
Sitting on side of bed, awake/alert/oriented, T/R self ad rob, cont of B/B with BRPs per self ad rob, denies pain/other discomfort at this time, call light/phone/water within reach, no s/s of acute distress observed.
[2021-01-21 08:38] VITALS: BP 142/55
[2021-01-21 12:00] VITALS: BP 119/50
--- NOTE | 2021-01-21 13:30 | NUR ---
Provided written/verbal discharge instructions to which patient verbalized understanding, discontinued IV access/cardiac telemetry monitoring.
--- NOTE | 2021-01-21 14:48 | NUR ---
Discharged home to self care in stable condition via w/c accompanied by hospital staff and family member, no s/s of acute distress observed.
--- NOTE | 2021-01-21 15:53 | NUR ---
PATIENT REFUSED ALL MOBILITY TODAY.
[2021-01-21 16:27] VITALS: BP 143/47
[2021-01-21 20:00] VITALS: BP 137/71
--- NOTE | 2021-01-21 22:44 | NUR ---
REPORT RECEIVED. PT A&O, UP ON SIDE OF BED. C/O HEADACHE. TYLENOL GIVEN. NO DISTRESS OBSERVED. RR EVEN & UNLABORED ON 3L. IV TO L FA PATENT AND INFUSING NS AT 30CC/HR. BED LOCKED AND LOWERED, CL IN REACH. ASSESSMENT COMPLETE. WILL CONT POC.
[2021-01-22] VITALS: BP 137/54
[2021-01-22 04:00] VITALS: BP 138/55
[2021-01-22 06:13] LABS: BASOPHILS 0.2 % (0-2); EOSINOPHILS 3.3 % (0-7); HEMOGLOBIN 9.4 g/dL (12-16); IMMATURE GRANULOCYTES 1.6 % (0-5); LYMPHOCYTE ABS# 0.61 10x3/uL (1.18-3.74); LYMPHOCYTES 7.5 % (15-50); MCH 27.6 pg (26.0-34.0); MCHC 31.3 g/dL (31.0-37.0); MEAN PLATELET VOLUME 10.2 fL (7.4-10.4); MONOCYTES 6.1 % (2-11); NEUTROPHIL ABS# 6.63 10x3/uL (1.56-6.13); NEUTROPHILS 81.3 % (40-80); PLATELET COUNT 261 10x3/uL (130-400); RBC 3.41 10x6/uL (4.00-5.40); RDW 15.3 % (11.5-14.5); WBC 8.2 10x3/uL (4.8-10.8)
[2021-01-22 06:28] LABS: ANION GAP 13.7 mmol/L (8-16); CALCIUM 8.4 mg/dL (8.5-10.1); CREATININE - SERUM 0.9 mg/dL (0.6-1.3); DIGOXIN 0.82 ng/mL (0.90-2.00); POTASSIUM - SERUM 3.7 mmol/L (3.5-5.1)
[2021-01-22 08:06] VITALS: BP 152/59
--- NOTE | 2021-01-22 10:14 | NUR ---
I have reviewed this patient and I concur with the Shift Assessment completed by the Licensed Practical Nurse today this shift.
[2021-01-22 10:21] LABS: IMMUNOGLOBULIN E <2 IU/mL (6-495)
[2021-01-22 12:22] VITALS: BP 157/60
[2021-01-22 13:12] LABS: SPECIMEN SOURCE Urine (())
--- NOTE | 2021-01-22 15:02 | NUR ---
GT BELT, O2 AT 3, PATIENT MIN ASST TO GET UP TO BEDSIDE AND TO STAND. PATIENT WALKED 70 FEET WITH MIN-MOD ASST USING CANE. PATIENT WAS UNSTEADY AND WOULD ALSO REACH OUT TO HOLD ON TO HAND RAILING. PATIENT ALSO FATIGUED QUICKLY AND TOOK ONE STANDING REST BREAK.
[2021-01-22 16:55] VITALS: BP 147/63
--- NOTE | 2021-01-22 19:44 | NUR ---
REPORT RECEIVED, PT A&O, LAYING IN BED. NO S/S OF DISTRESS OBSERVED. RR EVEN & UNLABORED ON 3L. IV TO L FA PATENT AND INFUSING NS AT 30CC/HR. BED LOCKED AND LOWERED, CL IN REACH. ASSESSMENT COMPLETE. WILL CONT POC.
[2021-01-22 20:11] VITALS: BP 130/54
[2021-01-23] VITALS (8 sets, daily range): BP systolic 115–158; BP diastolic 41–81
[2021-01-23 06:13] LABS: VANCOMYCIN - TROUGH 16.9 ug/mL (10.0-20.0)
--- NOTE | 2021-01-23 06:58 | NUR ---
BEDSIDE REPORT RECIEVED PATIENT AWAKE AND ALERT. NO CURRENT DISTRESS. CONTINUES TO COMPLAIN OF HEADACHE. TYLENOL ADMINISTERED BY MANAGER CARGO NURSE WITH NO RESULTS OF RELIEF. IV TO LEFT FOREARM INTACT AND PATENT. RESP EVEN AND UNLABORED.
--- NOTE | 2021-01-23 08:30 | NUR ---
PATIENT SITTING ON EDGE OF BED. NO CURRENT RESPIRATORY DISTRESS. RESP EVEN AND UNLABORED. O2 IN USE AT 3L VIA NASAL CANNULA. O2 SAT 99 WITH O2. CHECKED O2 AGAIN AFTER MEDICATION WITH OUT O2 97. LUNG SOUNDS LOWER BILATERAL LOBES WET AND WHEEZING HEARD. HEART SOUNDS REGULAR RATE AND RYTHYM. TELEMETRY IN PLACE. SR 79. PATIENT IS UP AT EDIE, CONTINUES WITH NS IV AT 30ML PER HOUR. VANC LEVEL 16.5. LEVAQUIN ORALLY STARTED. NO ADVERSE REACTIONS NOTED.
--- NOTE | 2021-01-23 11:03 | NUR ---
Nutrition Reassessment/Follow-up: Eating well. Noted plans to d/c soon. Diet: Diabetic No new wt; last wt: 240# (01/18) Labs noted: Glu 125 Meds noted: Florajen, Lasix, KDur, Protonix -Nutrition needs unchanged from initial assessment; no new wt available. -RD will follow up within 7 days if pt still admitted.
--- NOTE | 2021-01-23 19:50 | NUR ---
REPORT RECEIVED. PT A&O, UP ON SIDE OF BED. NO S/S OF DISTRESS OBSERVED. RR EVEN & UNLABORED ON 2L. IV TO L FA WITH NS AT 30. BED LOCKED AND LOWERED, CL IN REACH. ASSESSMENT COMPLETE. WILL CONT POC.
[2021-01-24 05:33] VITALS: BP 151/51
[2021-01-24 05:56] LABS: BASOPHILS 0.3 % (0-2); EOSINOPHILS 3.1 % (0-7); HEMATOCRIT 31.7 % (36.0-48.0); HEMOGLOBIN 9.9 g/dL (12-16); IMMATURE GRANULOCYTES 3.2 % (0-5); LYMPHOCYTE ABS# 0.49 10x3/uL (1.18-3.74); LYMPHOCYTES 6.8 % (15-50); MCH 27.8 pg (26.0-34.0); MCHC 31.2 g/dL (31.0-37.0); MEAN PLATELET VOLUME 9.8 fL (7.4-10.4); MONOCYTES 9.1 % (2-11); NEUTROPHIL ABS# 5.56 10x3/uL (1.56-6.13); NEUTROPHILS 77.5 % (40-80); PLATELET COUNT 252 10x3/uL (130-400); RBC 3.56 10x6/uL (4.00-5.40); RDW 15.1 % (11.5-14.5); WBC 7.2 10x3/uL (4.8-10.8)
[2021-01-24 06:13] LABS: ANION GAP 10.6 mmol/L (8-16); CALCIUM 8.7 mg/dL (8.5-10.1); CARBON DIOXIDE 30.6 mmol/L (21.0-32.0); CREATININE - SERUM 0.9 mg/dL (0.6-1.3); POTASSIUM - SERUM 4.2 mmol/L (3.5-5.1)
[2021-01-24 06:56] VITALS: BP 145/41
--- NOTE | 2021-01-24 07:00 | NUR ---
PT LYING IN BED. RESP EVEN AND UNLABORED. [address]PM V[address] NC IN PL[address]. AAOX4. DENIES NEEDS AT THIS TIME. CLIR. BED IN LOWEST POSITION. SIDE RAILS X2
[2021-01-24 11:08] VITALS: BP 156/66
[2021-01-24] MEDS ORDERED: DIGOXIN250 MCG PO (13:58)
[2021-01-24] MEDS ORDERED: LEVAQUIN750 MG PO (13:58)
[2021-01-24] MEDS ORDERED: SINGULAIR10 MG PO (14:01)
[2021-01-24] MEDS ORDERED: TESSALON PERLE100 MG PO (14:01)
[2021-01-24] MEDS ORDERED: MUCINEX DM ER1 EAC1 PO (14:01)
--- NOTE | 2021-01-24 14:18 | NUR ---
I have reviewed this patient and I concur with the Shift Assessment completed by the Licensed Practical Nurse today this shift.
--- NOTE | 2021-01-24 16:00 | NUR ---
PT DC HOME WITH FAMILY MEMBER. DC INSTRUCTIONS PROVIDED VERBALLY AND WRITTEN. PT VERBALIZED UNDERSTANDING
--- NOTE | 2021-01-24 18:24 | MORECARE ---
CASE MANAGEMENT DISCHARGE SUMMARY PATIENT: GIULIANO SHAH UNIT: [id number] ADM DATE: 01/17/21 AGE: 75 : 47 SEX: F ROOM/BED: D.1366 AUTHOR: MAKENZIE,DOC PHYSICIAN: REFERRING PHYSICIAN: NANCY PATE MD DATE OF SERVICE: 01/24/21 Case Management Discharge Planning Summary COMMENTS ENTERED DATE: 01/24/21 18:17 CT COMMENT TYPE: Discharge Planning REVIEWER: Julianna Louis CM received discharge orders. Her room air saturation with ambulation is 88%. JAMISON for [place] signed. I called [facility] and they brought out a portable tank for discharge and will set up concentrator at her home. She declines need for home health or rehab. states she is independent with all ADL's and AIDL's. Home today with home oxygen. DCP REVIEW SUMMARY ANTICIPATED D/C DATE: EXPECTED LOS : CASE STATUS: DCP Initiated INITIAL REVIEW: 01/24/2021 INITIAL REVIEWER: Julianna Louis FINAL DISCHARGE DISPOSITION: : FINAL REVIEWER: FINAL REVIEW DATE: DCP Focus Questions & Answers DCP Evaluation QUESTION: ANSWER Patient's current cognitive status: : *Oriented to person, place, situation, time and present Patient's ability to cope with chronic illness : d. No chronic illness Family / Caregiver's ability to cope with chronic illness: : a. Adequate (ability to meet patient's medical needs, ensures patient attends medical appts.) Does the patient have the ability to pay for or attain post discharge needs / services? : Yes Functional screen assessment: : No issues identified Equipment needed for post hospitalization: : Home Oxygen with Nasal Cannula Living Arrangements: : Home with Spouse/Significant Other Results of this evaluation have been discussed with: : Patient Living arrangements comments: : Robin Khan - [phone] Medication Management: : Patient states can afford medications Pharmacy name(s): : [facility] Does Patient have transportation to get home and to follow-up medical appointments when discharged from the hospital? : Yes Comments: : Patient drives Would patient like to participate in any Care Coordination programs (if applicable): : Not applicable Does the patient have electricity at home? : Yes Does the patient have running water in their house? : Yes Equipment in use: : Cane - Single Leg Equipment in use: : Nebulizer Equipment in use: : Walker - Rolling Mental health screen: : No mental health history Abuse/Neglect: : None DCP Re-evaluation QUESTION: ANSWER Would patient like to participate in any Care Coordination programs (if applicable): : Not applicable PATIENT: GIULIANO SHAH ENCOUNTER: [id number] MEDICAL RECORD#: [id number] ADMISSION DATE: 01/17/2021 DISCHARGE DATE: 01/24/2021 ATTENDING MD: NANCY BALDWIN : 1945-Scott- AGE: 75 MARITAL STATUS: S DC PLAN ID: [id number] FACILITY: [facility] PRINTED ON: 01/24/21 18:24 CT All edits/amendments must be made on the electronic document DICTATION DATE: 01/24/211823 GEOSPATIAL SPECIALIST: CATERINA 01/24/211823 RPT#: [id number] DC DATE:01/24/21 STATUS: DIS IN [facility] [address] [place] [address] END OF REPORT
--- NOTE | 2021-02-02 17:03 | MORECARE ---
CASE MANAGEMENT DISCHARGE SUMMARY PATIENT: GIULIANO SHAH UNIT: [id number] ADM DATE: 01/17/21 AGE: 75 : 47 SEX: F ROOM/BED: D.9118 AUTHOR: MAKENZIE,DOC PHYSICIAN: REFERRING PHYSICIAN: NANCY PATE MD DATE OF SERVICE: 02/02/21 Case Management Discharge Planning Summary COMMENTS ENTERED DATE: 01/24/21 18:17 CT COMMENT TYPE: Discharge Planning REVIEWER: Julianna Louis CM received discharge orders. Her room air saturation with ambulation is 88%. JAMISON for [place] signed. I called [facility] and they brought out a portable tank for discharge and will set up concentrator at her home. She declines need for home health or rehab. states she is independent with all ADL's and AIDL's. Home today with home oxygen. DCP REVIEW SUMMARY ANTICIPATED D/C DATE: EXPECTED LOS : CASE STATUS: DCP Initiated INITIAL REVIEW: 01/24/2021 INITIAL REVIEWER: Julianna Louis FINAL DISCHARGE DISPOSITION: : FINAL REVIEWER: FINAL REVIEW DATE: DCP Focus Questions & Answers IDP Evaluation QUESTION: ANSWER Patient's ability to cope with chronic illness : d. No chronic illness Patient's current cognitive status: : *Oriented to person, place, situation, time and present Family / Caregiver's ability to cope with chronic illness: : a. Adequate (ability to meet patient's medical needs, ensures patient attends medical appts.) Does the patient have the ability to pay for or attain post discharge needs / services? : Yes Functional screen assessment: : No issues identified Living Arrangements: : Home with Spouse/Significant Other Equipment needed for post hospitalization: : Home Oxygen with Nasal Cannula Living arrangements comments: : Robin Khan - [phone] Results of this evaluation have been discussed with: : Patient Medication Management: : Patient states can afford medications Pharmacy name(s): : [facility] Does Patient have transportation to get home and to follow-up medical appointments when discharged from the hospital? : Yes Comments: : Patient drives Would patient like to participate in any Care Coordination programs (if applicable): : Not applicable Does the patient have electricity at home? : Yes Does the patient have running water in their house? : Yes Equipment in use: : Cane - Single Leg Equipment in use: : Nebulizer Equipment in use: : Walker - Rolling Mental health screen: : No mental health history Abuse/Neglect: : None DCP Re-evaluation QUESTION: ANSWER Would patient like to participate in any Care Coordination programs (if applicable): : Not applicable PATIENT: GIULIANO SHAH ENCOUNTER: [id number] MEDICAL RECORD#: [id number] ADMISSION DATE: 01/17/2021 DISCHARGE DATE: 01/24/2021 ATTENDING MD: NANCY BALDWIN : 1945-Scott AGE: 75 MARITAL STATUS: S DC PLAN ID: [id number] FACILITY: [facility] PRINTED ON: 02/02/21 17:03 CT All edits/amendments must be made on the electronic document DICTATION DATE: 02/02/211702 MANAGER CONSTRUCTION: CATERINA 02/02/211702 RPT#: [id number] DC DATE:01/24/21 STATUS: DIS IN [facility] [address] [place] [address] END OF REPORT
== END 2021-01-24 16:00 | disposition home or self-care (01) | DRG 193 ==
LOC: D.M2 16:26
PROVIDERS: Internal Medicine Pulmonary Disease; ADMIT Family Medicine; ATTEND Family Medicine
DX: J13 Pneumonia due to Streptococcus pneumoniae (principal); J96.01 Acute respiratory failure with hypoxia; J45.901 Unspecified asthma with (acute) exacerbation; J98.11 Atelectasis; I50.42 Chronic combined systolic (congestive) and diastolic (congestive) heart failure; Z68.41 Body mass index [BMI] 40.0-44.9, adult; K21.9 Gastro-esophageal reflux disease without esophagitis; I48.91 Unspecified atrial fibrillation; I25.10 Atherosclerotic heart disease of native coronary artery without angina pectoris; D50.9 Iron deficiency anemia, unspecified; I27.20 Pulmonary hypertension, unspecified; I11.0 Hypertensive heart disease with heart failure; E11.9 Type 2 diabetes mellitus without complications; E66.9 Obesity, unspecified; Z87.891 Personal history of nicotine dependence; Z85.3 Personal history of malignant neoplasm of breast; I08.1 Rheumatic disorders of both mitral and tricuspid valves

== ENCOUNTER 2021-03-18 14:35 | Outpatient (CLI) | payer MEDICARE, MEDICAID ==
[2021-01-18 12:23] VITALS: BMI 41.2
[~2021-03-18 14:35] MED LIST changes: +DIGOXIN250 MCG PO; +GABAPENTIN100 MG PO; +GLUCOPHAGE500 MG PO; +HYDROCODONE-AC1 EAC2 PO; +IPRAT-ALBUT 0.5-3 ML INH; +LEVAQUIN750 MG PO; +LOW DOSE ASPIRI81 M1 PO; +MACRODANTIN100 MG PO; +MUCINEX DM ER1 EAC1 PO; +OMEPRAZOLE20 M1 PO; +PEPCID AC20 MG PO; +PEPTO-BISMOL262 M1 PO; +POTASSIUM CHLO10 ME1 PO; +PROAIR HFA8.5 G1; +PROAIR HFA8.5 G1 IH; +SINGULAIR10 MG PO; +SOMA350 MG PO; +TESSALON PERLE100 MG PO; +TOPROL XL100 MG; +ZOLOFT100 MG PO
== END 2021-03-18 23:59 | disposition home or self-care (01) ==
LOC: D.MAMMO 14:35
PROVIDERS: ATTEND Surgery
DX: C50.412 Malignant neoplasm of upper-outer quadrant of left female breast (principal)